=== PATIENT | male | born 1990 | race African-American/Black ===

== ENCOUNTER 2016-10-18 23:48 | Emergency (ER) | payer OTHER ==
[~2016-10-18] VITALS: Ht 170.2 cm; Wt 76.3 kg
[2016-10-18 23:48] VITALS: BP 141/77
== END 2016-10-19 02:29 | disposition left against medical advice (07) ==
LOC: M ED 10-19 02:07
DX: K62.5 Hemorrhage of anus and rectum (principal); Z53.29 Procedure and treatment not carried out because of patient's decision for other reasons